=== PATIENT | female | born 1975 | race Caucasian/White ===

== ENCOUNTER 2018-07-12 09:32 | Day surgery (SDC) | payer OTHER, SELFPAY ==
[2018-07-06 15:41] VITALS: BMI 29.8
[2018-07-12] VITALS (16 sets, daily range): BP systolic 100–120; BP diastolic 61–78; PULSE 62–97; RESP 10–17; TEMP 36.2–36.7; O2SAT 95–100; BMI 29.8
--- NOTE | 2018-07-12 | DI.RAD.S_ITS ---
PROCEDURE: XR CERVICAL SPINE 2V OR 3V INDICATIONS: C5-6, C6-7 ACDF TECHNIQUE: 2 view(s) of the cervical spine were acquired. COMPARISON: [facility] Outside Film, MR, MR CERVICAL SPINE WITHOUT CONTRAST, 03/27/2018, 13:00. [facility] Outside Film, CR, XR CERVICAL SPINE 2 OR 3 VIEWS, 03/16/2018, 13:15. FINDINGS: Intraoperative fluoroscopy images demonstrate discectomy and placement of disc prosthesis at C5-C6 and C6-C7. IMPRESSION: ACDF at C5-C6 and C6-C7. Dictated by: Iván Azul M.D. on 07/12/2018 at 17:06 Approved by: Iván Azul M.D. on 07/12/2018 at 17:07
[2018-07-12] MEDS: LACTATED RINGERS 1,000 ML 42 ML IV (10:26)
[2018-07-12] MEDS: fentaNYL 100 MCG/2 ML INJ 50 MCG IV ×3 (12:00→15:40)
--- NOTE | 2018-07-12 12:04 | PM.PREOP ---
Pre-operative Note Interval Note Pre-op Check: Yes History & Physical Reviewed by Physician and Yes Exam Performed Changes: No
[2018-07-12] MEDS: CEFAZOLIN 2 GM/100 ML FROZ.PIGGY IV ×2 (13:07→21:31)
--- NOTE | 2018-07-12 13:46 | SUR.OPER ---
Supine on padded OR bed, head on gel doughnut, towel roll under shoulder blades, arm padded and tucked at side, legs uncrossed, safety belt at thigh, tape over blanket over lower legs .
[2018-07-12] MEDS: THROMBIN (BOVINE) 5,000 UNIT VIAL 5000 UNIT TOP (13:58)
[2018-07-12] MEDS: SODIUM CHLORIDE 0.9% 1,000 ML, GENTAMICIN 80 MG IRR (13:59)
--- NOTE | 2018-07-12 14:55 | PM.OP.1 ---
Operative Date/Time/Diagnoses Date of procedure: 07/12/18 Time of procedure: 14:55 Pre-op diagnosis: Cervical disc herniation and stenosis with radiculopathy Post-op diagnosis: same Procedure & Clinicians Procedure: C5-6 artificial disc replacement C6-7 artificial disc replacement Use of microscope Same procedure as scheduled: Yes Indications: [age] year old female with intractable pain from cervical disc herniation. They had failed conservative management and requested operative intervention. Risks and benefits of surgery were discussed and appropriate consents were obtained. Surgeon: Isaac Benitez Washer Blanket: Angelina Rascon Anesthesia Type: General Operative Notes Findings: none Closure Type: primary Specimen(s): none sent Implants & Drains: Rajesh LDR Mobi-C Estimated Blood Loss (mL): 10 Procedure in detail: Patient was brought to the operating room and intubated on the table. A time-out was performed. Preoperative antibiotics were given. The neck was prepped and draped in the standard sterile fashion.Using a skin fold, we made a 3 cm oblique incision on the left side. We used Bovie to go through the platysma and then did a standard anterolateral blunt dissection down to the precervical fascia. Fascia was nicked and elevated up. A marker was placed and x-ray was taken for localization. We then subperiosteally elevated up the longus colli muscles. Self-retaining retractors were placed. [place] pins were placed under x-ray guidance to be parallel to the endplates. We then brought in the microscope. A scalpel used to perform an annulotomy. We then used a combination of pituitaries and curettes and Kerrison to perform a complete anterior diskectomy at C6-7. We took down the PLL and used Kerrisons to remove any posterior disc material and osteophytes. She did have some moderate central osteophytes that were removed. At the end we could from the nerve hook cephalad caudally and out the foramen and everything was opened. We distracted open with the parallel gun sealing machine operator. We then used the horseshoes for sizing. We then used the trials. We then inserted a 19 mm x 15 mm x 6 mm size Mobi-C artificial disc replacement under fluoroscopic guidance for positioning. The traction was clamped down and x-ray was checked again. We removed the inserters. We then moved up a level to C5-6. The [place] pins were repositioned with x-ray. An annulotomy was performed and a complete diskectomy was performed with Kerrison and pituitaries. We took down the PLL. We removed the posterior osteophytes and disc material. At the end we could run the nerve hook posterior to the vertebral body wall and out the neural foramen and everything was opened. We then trialed and placed a 17 mm x 15 mm x 5 mm size disc replacement under fluoroscopic guidance. The traction was clamped down and x-ray was checked again and then we removed the inserters. The self-retaining retractors and [place] pins were removed and final x-rays taken. The wound was irrigated. There was no bleeding. The carotid was beating nicely. The platysma was closed. The superficial was closed. The skin was closed. A sterile dressing was placed. They were then extubated and brought to recovery room with no complications. Complications: none Condition: stable Disposition: PACU Plan for aftercare: Overnight observation. Discharge in the morning.
--- NOTE | 2018-07-12 14:59 | P.OP_ITS ---
Operative Date/Time/Diagnoses Date of procedure: 07/12/18 Time of procedure: 14:55 Pre-op diagnosis: Cervical disc herniation and stenosis with radiculopathy Post-op diagnosis: same Procedure & Clinicians Procedure: C5-6 artificial disc replacement C6-7 artificial disc replacement Use of microscope Same procedure as scheduled: Yes Indications: [age] year old female with intractable pain from cervical disc herniation. They had failed conservative management and requested operative intervention. Risks and benefits of surgery were discussed and appropriate consents were obtained. Surgeon: Isaac Benitez Coater Operator Insulation Board: Angelina Rascon Anesthesia Type: General Operative Notes Findings: none Closure Type: primary Specimen(s): none sent Implants & Drains: Rajesh LDR Mobi-C Estimated Blood Loss (mL): 10 Procedure in detail: Patient was brought to the operating room and intubated on the table. A time-out was performed. Preoperative antibiotics were given. The neck was prepped and draped in the standard sterile fashion.Using a skin fold, we made a 3 cm oblique incision on the left side. We used Bovie to go through the platysma and then did a standard anterolateral blunt dissection down to the precervical fascia. Fascia was nicked and elevated up. A marker was placed and x-ray was taken for localization. We then subperiosteally elevated up the longus colli muscles. Self-retaining retractors were placed. [place] pins were placed under x-ray guidance to be parallel to the endplates. We then brought in the microscope. A scalpel used to perform an annulotomy. We then used a combination of pituitaries and curettes and Kerrison to perform a complete anterior diskectomy at C6-7. We took down the PLL and used Kerrisons to remove any posterior disc material and osteophytes. She did have some moderate central osteophytes that were removed. At the end we could from the nerve hook cephalad caudally and out the foramen and everything was opened. We distracted open with the parallel assistant real estate manager. We then used the horseshoes for sizing. We then used the trials. We then inserted a 19 mm x 15 mm x 6 mm size Mobi-C artificial disc replacement under fluoroscopic guidance for positioning. The traction was clamped down and x-ray was checked again. We removed the inserters. We then moved up a level to C5-6. The [place] pins were repositioned with x- ray. An annulotomy was performed and a complete diskectomy was performed with Kerrison and pituitaries. We took down the PLL. We removed the posterior osteophytes and disc material. At the end we could run the nerve hook posterior to the vertebral body wall and out the neural foramen and everything was opened. We then trialed and placed a 17 mm x 15 mm x 5 mm size disc replacement under fluoroscopic guidance. The traction was clamped down and x- ray was checked again and then we removed the inserters. The self-retaining retractors and [place] pins were removed and final x-rays taken. The wound was irrigated. There was no bleeding. The carotid was beating nicely. The platysma was closed. The superficial was closed. The skin was closed. A sterile dressing was placed. They were then extubated and brought to recovery room with no complications. Complications: none Condition: stable Disposition: PACU Plan for aftercare: Overnight observation. Discharge in the morning.
[2018-07-12] MEDS: ACETAMINOPHEN IV 1,000 MG/100 ML VIAL 400 MG IV (15:05)
[2018-07-12] MEDS: HYDROMORPHONE 2 MG INJ 0.5 MG IV ×4 (15:15→15:50)
[2018-07-12] MEDS: MEPERIDINE 50 MG/ML 25 MG IV (15:54)
[2018-07-12] MEDS: hydrOXYzine 50 MG/ML INJ 25 MG IM (16:29)
[2018-07-12] MEDS: HYDROCODONE/ACET 5/325 TABLET 1 TAB PO ×2 (17:25→21:46)
[2018-07-12] MEDS: LACTATED RINGERS 1,000 ML 125 ML IV (17:52)
[2018-07-12] MEDS: HYDROCODONE/ACET 5/325 TABLET 2 TAB PO (19:13)
[2018-07-12] MEDS: KETOROLAC 30 MG/ML VIAL IV (19:41)
[2018-07-12] MEDS: SENNOSIDES 8.6 MG TABLET 17.2 MG PO (21:32)
[2018-07-12] MEDS: DOCUSATE 100 MG CAPSULE PO (21:32)
[2018-07-12] MEDS: LORATADINE 10 MG TABLET PO (21:32)
[2018-07-12] MEDS: GABAPENTIN 300 MG CAPSULE PO (21:34)
[2018-07-13] VITALS: O2SAT 97
[2018-07-13] MEDS: HYDROCODONE/ACET 5/325 TABLET 2 TAB PO ×2 (00:11→09:23)
[2018-07-13 00:40] VITALS: BP 102/59; PULSE 61; RESP 18; TEMP 36.8; O2SAT 97
[2018-07-13] MEDS: LACTATED RINGERS 1,000 ML 125 ML IV (03:33)
[2018-07-13] MEDS: KETOROLAC 30 MG/ML VIAL IV ×2 (03:56→09:25)
[2018-07-13] MEDS: CEFAZOLIN 2 GM/100 ML FROZ.PIGGY IV (05:31)
[2018-07-13] MEDS: HYDROCODONE/ACET 5/325 TABLET 1 TAB PO (05:37)
[2018-07-13] MEDS: PANTOPRAZOLE 20 MG TABLET PO (05:38)
[2018-07-13] MEDS: LEVOTHYROXINE 100 MCG TABLET PO (05:38)
--- NOTE | 2018-07-13 07:49 | PM.PNPO.1 ---
Subjective Date Patient Seen: 07/13/18 Time Patient Seen: 07:49 Interval history: Pain in the neck. No more arm pain but increased tingling and numbness in both hands. Exam Vital Signs (past 8 hours): - 07/13/18 00:00 07/13/18 00:40 Temperature 98.2 F Pulse Rate 61 Respiratory Rate 18 Blood Pressure 102/59 L Pulse Oximetry 97 97 Oxygen Delivery Method Nasal Cannula Oxygen Flow Rate 0 Const Orientation: alert and oriented x3 Back/Spine/Pelvis Other: dressing CDI. 5/5 motor both upper extremities. Assessment & Plan Post-op Postoperative Procedures Operation Date: 07/12/18 11:45 Actual Procedures Side Surgeon p C5-6,C6-7 Anterior Cervical Discectomy & Artificial Disc Replacement Isaac Benitez MD she is doing well. She feels stable enough for discharge home today. I will give her some steroid medication to take over the weekend if the tingling becomes more bothersome.
[2018-07-13 08:00] VITALS: BP 102/69; PULSE 70; RESP 16; TEMP 36.6; O2SAT 100
[2018-07-13] MEDS: TRIAMTERENE/HCTZ 37.5/25 TABLET 1 CAP PO (08:15)
[2018-07-13] MEDS: CHOLECALCIFEROL (VITAMIN D3) 5,000 UNIT TABLET 10000 UNIT PO (09:17)
[2018-07-13] MEDS: DOCUSATE 100 MG CAPSULE PO (09:19)
--- NOTE | 2018-07-13 09:37 | OT.IP.EVAL ---
Current Diagnoses Spinal stenosis, cervical region (07/12/18) Other cervical disc degeneration, unspecified cervical region (07/12/18) Surgery Performed Operation Date: 07/12/18 11:45 Actual Procedures p C5-6,C6-7 Anterior Cervical Discectomy & Artificial Disc Replacement - Isaac Benitez MD Past Medical History (Last Updated 07/06/18 @ 15:52 by Ramona Lara, RN) Cervical spinal stenosis (Acute) Degenerative disc disease, cervical (Acute) Displaced intervertebral disc (Acute) Former smoker (Acute) History of headache (Acute) History of hysterectomy (Acute) Multiple sclerosis (Acute) Neck pain (Acute) Numbness (Acute) Weakness (Acute) Surgical History (Last Updated 07/06/18 @ 15:47 by Ramona Lara, RN) History of bilateral carpal tunnel release (Acute) History of colectomy (Acute) History of oophorectomy (Acute) Occupational Therapy Inpatient Evaluation/Re-Eval M1 PT/OT-IP Prior Functional Status Start: 07/13/18 09:18 Freq: NEEDED Status: Active Protocol: Document 07/13/18 09:18 [facility] (Rec: 07/13/18 09:36 [facility] [id number]) Medical Review Prior Functional Status Medical History Reviewed Yes Diet/Fluid Consistency Regular Thin Liquids Communication Independent Mobility and Gait Independent no device. Activities of Daily Living and IADL's Independent. Social History Household Members spouse Living Arrangements House Number of Floors (Floors) One Floor Number of Stairs To Enter/Railing? 3 steps no rails. Home Environment High Toilet Tub/Shower Employment Status Self-Employed M2 OT-IP Current Condition Start: 07/13/18 09:18 Freq: Status: Active Protocol: Document 07/13/18 09:18 [facility] (Rec: 07/13/18 09:36 [facility] [id number]) Occupational Therapy Current Condition Current Condition Evaluation Date 07/13/18 Treatment Diagnosis Cervical Spinal stenosis Diagnosis Onset Date 07/12/18 Post Operative Precautions Cervical Spine Precautions Soft Collar for Comfort No Heavy Lifting Log Roll M3 OT- IP Subjective and Pain Start: 07/13/18 09:18 Freq: Status: Active Protocol: Document 07/13/18 09:18 [facility] (Rec: 07/13/18 09:36 [facility] [id number]) OT- Subjective Occupational Therapy Visit Type Type Initial Evaluation Visit Start Time 09:00 Visit Stop Time 09:15 Total Visit Minutes 15 Occupational Therapy Visit Comments Patient Comments Pt complaining of difficulty to swallow without comfort collar. Nurse notified and gave pt suggestions of soft foods, small bites and sips and take it slow. Called FORMULA ROOM WORKER for screen. Patient/Caregiver Goals To go home today. OT Pain Assessment Pain When Pain Assessed At Rest Pain Present Pain Present Pain Reported Location posterior neck/shoulders Intensity 7 Scale Used Numeric (1 - 10) Description Aching Management Techniques Re-positioning Timing of Activity with Medications M4 OT- IP ADL's Start: 07/13/18 09:18 Freq: Status: Active Protocol: Document 07/13/18 09:18 [facility] (Rec: 07/13/18 09:36 [facility] [id number]) OT [id number] Comments OT Self-Feeding Comments Pt states without the collar feels like having trouble swallowing and educated on trying softer food, smaller bites, and alternating between solids and liquids and also pt agreed to have FORMULA ROOM WORKER come and screen/talk to pt. OT ADL-Grooming General Evaluation Grooming Ability Independent OT ADL-Oral Care General Eval Oral Care Ability Independent OT ADL-Dressing General Eval Upper Body Dressing Ability Independent Lower Body Dressing Ability Standby Assistance Areas Needing Assistance Retrieving/Set-up of Clothing Comments OT Dressing Comments Pt able to cross legs over to do socks and LB dressing. OT ADL-Toileting General Evaluation Toileting Ability Independent OT ADL-Bathing Comments OT Bathing Comments Pt states to shower before leaving. Pt's to assist to step into tub/shower and shower chair suggested may be beneficial to sit and shower. M6 OT- IP Functional Cognition Start: 07/13/18 09:18 Freq: Status: Active Protocol: Document 07/13/18 09:18 [facility] (Rec: 07/13/18 09:36 [facility] [id number]) Cognitive Factors Limiting Selfcare Function Cognitive Ability Level of Alertness Alert Patient Orientation Name Place Situation Attention Span Ability Capable of Focused Attention Capable of Sustained Attention Ability to Follow Commands Able to Follow Multi-Step Commands Memory Description No Deficits Noted Safety Awareness No Deficits Noted Problem Solving Ability No deficits Noted Executive Function Ability No Deficits Noted OT- Vision and Hearing OT- Hearing Assessment OT- Hearing Assessment WFL OT- Vision Assessment Visual Acuity WFL M7 OT- IP Mobility and Balance Start: 07/13/18 09:18 Freq: Status: Active Protocol: Document 07/13/18 09:18 [facility] (Rec: 07/13/18 09:36 [facility] [id number]) OT- Bed Mobility Assessment Rolling Type of Rolling Bilateral Level of Assistance Independent Supine to Sit Supine to Sit Assist Independent Sit to Supine Sit to Supine Assist Independent OT-Transfer Assessment Sit to and From Stand Sit to and from Stand Standby Assistance Transfers Transfer Ability Standby Assistance Technique Transfer Destination Bed Toilet Transfer Technique Stand Step Pivot Devices Transfer Assistive Devices None Comments Mobility Comments Pt doing , pt SBA for level surfaces and PT to access stairs with pt later. OT- Balance Assessment Sitting Balance and Reactions Static Sitting Balance Ability Normal Dynamic Sitting Balance Ability Normal Standing Balance and Reactions Static Standing Balance Ability Normal Dynamic Standing Balance Ability Good M8 OT- IP Objective Assessments Start: 07/13/18 09:18 Freq: Status: Active Protocol: Document 07/13/18 09:18 [facility] (Rec: 07/13/18 09:36 [facility] [id number]) OT Gross Range of Motion Upper Extremity Range of Motion Assessment Within Functional Limits OT Strength Upper Extremity Strength Assessment Within Functional Limits OT Sensation Assessment Comments Summary Comments Pt complaining of numbness in left hand digits 3,4, and 5. M9 OT- IP Assessment and Plan Start: 07/13/18 09:18 Freq: Status: Active Protocol: Document 07/13/18 09:18 [facility] (Rec: 07/13/18 09:36 [facility] [id number]) OT Summary Assessment and Plan Potential Rehabilitation Potential Excellent Analytic Complexity at Evaluation Low Summary OT Impairments Pain Sensation Bathing Progress Towards Goals Progressing Toward Goals Assessment Summary Pt low complexity and main barrier is steps, and having difficulty to swallow. Pt has good family support and to be home to assist with all needs. Pt to go home later today per pt. Goals Bathing Goal Standby Assistance Patient/Caregiver Education Goal Demonstrate Post-Op Precautions Caregiver Independent Assisting Patient Days to Meet Goals 1 Frequency of Treatment Frequency Of Treatment Once a Day Treatment Plan OT Treatment Plan Patient/Family Education Discharge Planning Discharge Recommendations OT Discharge Recommendations Home with Assistance Home Equipment Needs shower chair
--- NOTE | 2018-07-13 10:27 | PT.IIE ---
Current Diagnoses Spinal stenosis, cervical region (07/12/18) Other cervical disc degeneration, unspecified cervical region (07/12/18) Surgery Performed Operation Date: 07/12/18 11:45 Actual Procedures p C5-6,C6-7 Anterior Cervical Discectomy & Artificial Disc Replacement - Isaac Benitez MD Surgical History (Last Updated 07/06/18 @ 15:47 by Ramona Lara, RN) History of bilateral carpal tunnel release (Acute) History of colectomy (Acute) History of oophorectomy (Acute) Medical History (Last Updated 07/06/18 @ 15:52 by Ramona Lara, RN) Cervical spinal stenosis (Acute) Degenerative disc disease, cervical (Acute) Displaced intervertebral disc (Acute) Former smoker (Acute) History of headache (Acute) History of hysterectomy (Acute) Multiple sclerosis (Acute) Neck pain (Acute) Numbness (Acute) Weakness (Acute) Physical Therapy Inpatient Evaluation/Re-Eval M1 PT/OT-IP Prior Functional Status Start: 07/13/18 09:18 Freq: NEEDED Status: Active Protocol: Document 07/13/18 09:50 [facility] (Rec: 07/13/18 10:27 [facility] [id number]) Medical Review Prior Functional Status Medical History Reviewed Yes Diet/Fluid Consistency Regular Thin Liquids Communication Independent Mobility and Gait Independent no device. Activities of Daily Living and IADL's Independent. Social History Household Members spouse Living Arrangements House Number of Floors (Floors) One Floor Number of Stairs To Enter/Railing? 3 steps no rails. Home Environment High Toilet Tub/Shower Employment Status Self-Employed M2 PT-IP Current Condition Start: 07/13/18 10:17 Freq: NEEDED Status: Active Protocol: Document 07/13/18 09:50 [facility] (Rec: 07/13/18 10:27 [facility] [id number]) Physical Therapy Current Condition Current Condition Evaluation Date 07/13/18 Treatment Diagnosis ACDF Onset Date 07/12/18 Precautions Cervical Spine Precautions Soft Collar for Comfort No Heavy Lifting Log Roll Weight Bearing Status Weight Bearing Status Full Weight Bearing M3 PT-IP Subjective Start: 07/13/18 10:17 Freq: NEEDED Status: Active Protocol: Document 07/13/18 09:50 [facility] (Rec: 07/13/18 10:27 [facility] [id number]) Subjective Physical Therapy Visit Type Type Initial Evaluation Visit Start Time 09:50 Visit Stop Time 10:15 Total Visit Minutes 25 Number of PRIMARY MONTESSORI TEACHER Visits 0 Physical Therapy Visit Comments Patient Comments Pt reports generalized cervical pain, improving since her pain meds a few minutes ago. Notes some tingling in her hands, and pain with cervical ROM. Patient Goals Return home Therapy Pain Assessment Pain When Pain Assessed At Rest Pain Present Pain Present Pain Reported Location posterior neck/shoulders Intensity 5 Scale Used Numeric (1 - 10) M4 PT-IP Mobility and Gait Start: 07/13/18 10:17 Freq: NEEDED Status: Active Protocol: Document 07/13/18 09:50 [facility] (Rec: 07/13/18 10:27 [facility] [id number]) PT-Bed Mobility Assessment Rolling Type of Rolling Log Rolling Level of Assist Independent Supine to Sit Supine to Sit Independent Sit to Supine Sit to Supine Independent Scooting Scooting to Edge of Bed Independent PT-Transfer Assessment Sit to and From Stand Sit to and from Stand Independent Equipment Transfer Assistive Device None Gait Assessment Gait Gait Assistance Required: Independent Distance (Feet) 60 Able to Maintain Weight Bearing Status Yes During Gait Assistive Devices Assistive Device None Gait Deviations General Gait Pattern Within Normal Limits Stair Climbing Assessment Evaluation Level of Assist On Stairs Independent Devices Stair Climbing Assistive Devices None Left Railing Right Railing Technique/Endurance Stair Climbing Direction Ascend and Descend Stair Climbing Technique Step Over Step Step to Step Number of Steps Climbed 3 Query Text: Stair Climbing Set # Repetitions (reps) 2 Comments Stair Climbing Comments First attempt pt used bilateral railing, step-over- step both ascending and descending. Second attempt involved no railing, step-over -step ascending and step-to descending PT-Balance Assessment Sitting Balance and Reactions Static Sitting Balance Ability Normal Dynamic Sitting Balance Ability Normal Standing Balance and Reactions Static Standing Balance Ability Normal Dynamic Standing Balance Ability Normal Comments Other Balance Tests/Deviations/Treatment Pt standing balance with eyes : closed = slight sway M5 PT-IP Objective Assessments Start: 07/13/18 10:17 Freq: NEEDED Status: Active Protocol: Document 07/13/18 09:50 [facility] (Rec: 07/13/18 10:27 [facility] [id number]) Orientation Orientation/Cognition Level of Alertness Alert Orientation Name Birthday Date Place Situation Language Function Ability No Deficits Noted Safety Awareness Understands Safety Issues Memory Description No Deficits Noted Gross Range of Motion Upper Extremity ROM Assessment Within Functional Limits Lower Extremity ROM Assessment Within Functional Limits Strength Lower Extremity Strength Assessment Within Functional Limits Comments Strength Comments Mild left weakness with hip and knee flexion, 4+/5 Coordination Assessment Gross Coordination Gross Coordination WNL Muscle Tone Muscle Tone WNL Yes M7 PT-IP Assessment and Plan Start: 07/13/18 10:17 Freq: NEEDED Status: Active Protocol: Document 07/13/18 09:50 [facility] (Rec: 07/13/18 10:27 [facility] [id number]) PT Summary Assessment and Plan Potential Rehabilitation Potential Excellent Status of Condition at Evaluation Stable Summary Impairments Pain ROM Progress Towards Goals Safe For Discharge Assessment Summary Pt presents POD #1 from ACDF. Pt independent with all movement, including hallway ambulation and stairs. Safe to return to single-level home, will be available for any assistance needed. Pt understands she is cleared for cervical ROM, but is aware that she should not force mobility, and just perform gentle motions. Pt's case is complicated with a history of MS, but has no notable deficits at this time. Frequency of Treatment Frequency Of Treatment Discharge Discharge Recommendations PT Discharge Recommendations Home
--- NOTE | 2018-07-13 11:18 | PC.NURSE ---
Addendum entered by Dari Grubbs R.N. 07/13/18 14:12: dc - reviewed instructions with pt and spouse, scripts provided, belongings gathered, tsf to wc and escorted to family car by mixer operator helper hot metal. Original Note: AM NOTE - alert, states slept ok last night, continues with some swallowing discomfort, wearing soft cervical collar, telfa over 4x4 cdi, hr 72, ra 98%, pt req her diuretic for chronic edema, discussed bp and did admin, adv pt to mobilize slowly and dangle to make sure not dizzy.
--- NOTE | 2018-07-13 11:49 | SLP.IPNOTE ---
LAB ANALYST spoke with patient and regarding ACDF surgery and voice/swallowing. LAB ANALYST provided education regarding the healing process, diet modification, positioning and observing any voice/swallowing changes. LAB ANALYST provided written handout regarding voice/swallowing precautions post-ACDF surgery. Recommended contacting PCP if any problems arise/continue 1-2 weeks post-op. Patient told LAB ANALYST that she often has difficutly swallowing and has lump in her throat. LAB ANALYST recommended contacting PCP to discuss this. LAB ANALYST explained a clinical swallow evaluation and a modified barium swallow evaluation. Recommended following up with one or the other if swallowing difficulty increases. Patient and verbalized understanding. Total screen time: 15 minutes.
[2018-07-13] MEDS: METHOCARBAMOL 500 MG TABLET PO (12:44)
--- NOTE | 2018-07-13 15:40 | CM.IDA ---
DCP Assessment Note: Pt is a 42 yo female, resident of [place]. Pt is [facility] for a scheduled spinal surgery w/Dr Benitez. Pt's PCP is Dr Nicole; Insurance is [employer]. Met w/pt and her this morning at bedside. Pt was in some obvious distress during our conversation, both on the pain scale (RN notified) and d/t our discussion about pt's severe allergies; to include dairy, gluten, nuts, fish, and environmental allergens as well. Pt explains she had this confirmed by blood work this week. Pt explained she works for [employer] and spouse is an [employer] that has recently started a private practice. Pt is indp at baseline. Pt expects to go home today w/spouse to assist her in recovery. Pt appreciative of the visit and knows to contact this CW OPERATOR if any questions or concerns arise about her DC today. P: Home w/spouse today. Further review of pt's chart shows MS diagnosis. RAJAN Romero Discharge Planning/Care Management CM Discharge Assessment Start: 07/13/18 15:35 Freq: Status: Active Protocol: Document 07/13/18 15:35 NATE (Rec: 07/13/18 15:40 NATE [id number]) Discharge Planning Assessment Assigned [facility] RAJAN Campos DPOA/Assigned Designee Name Rupert Mckeon spouse Contact Information [phone] Advance Directives? No Prior Living Arrangements House Household Members spouse Type of transporation used prior to Drives own vehicle admit Independent with ADL's Yes Is patient alert and oriented? Yes Barriers to Discharge No Comment Home w/spouse today Discharge Plan Home Transportation Arrangement Spouse Referrals Initiated None needed Additional Comment See Narrative Whiteboard Updated in Patient Room with Yes name and ext. # of [facility] Please Provide Date Initial DC 07/13/18 Assessment Was Performed
== END 2018-07-13 14:10 | disposition home or self-care (01) ==
LOC: OR 09:34 → AC 17:15
PROVIDERS: PCP Family Medicine; Visit Provider Orthopaedic Surgery
PROC: (CPT 22856; principal; 2018-07-12 11:45)
DX: M48.02 Spinal stenosis, cervical region (principal); M50.122 Cervical disc disorder at C5-C6 level with radiculopathy; G35 Multiple sclerosis; Z87.891 Personal history of nicotine dependence
CPT/HCPCS: 22856; 22858; 72040; 76001; 97161; 97165; C1776; J0131; J0330; J0690; J1100; J1170; J1885; J2175; J2250; J2405; J2704; J3010; J3410